=== PATIENT | male | born 1945 | race Caucasian/White ===

== ENCOUNTER 2021-11-07 15:04 | Inpatient (IN) ==
[2021-11-07] MEDS ORDERED: 0.9 % Sodium Chloride 1,000 ML IV ONE (21:02)
[2021-11-07 21:12] LABS: Basophils # 0.1 K/mcL (0.0-0.2); Basophils % 0.8 %; Eosinophils # 0.2 K/mcL (0.0-0.6); Eosinophils % 1.7 %; Hematocrit 33.5 % (37.5-50.1); Hemoglobin 11.3 g/dL (12.9-16.9); Immature Granulocytes % 0.3 % (0-4); Lymphocytes # 1.4 K/mcL (0.6-4.6); Lymphocytes % 14.2 %; Mean Corpuscular HGB Conc 33.7 g/dL (31.6-35.5); Mean Corpuscular Hemoglobin 29.1 pg (28.0-33.3); Mean Corpuscular Volume 86.3 fL (83.0-100.0); Mean Platelet Volume 10.3 fL (9.4-12.4); Monocytes # 0.6 K/mcL (0.0-1.3); Monocytes % 5.7 %; Neutrophils # 7.4 K/mcL (1.6-8.9); Platelet Count 361 K/mcL (140-400); Red Blood Count 3.88 M/mcL (4.19-5.50); Red Cell Distribution Width 17.9 % (11.5-14.5); Segmented Neutrophils % 77.3 %; White Blood Count 9.6 K/mcL (4.3-11.1)
[2021-11-07 21:23] LABS: INR 1.7; Prothrombin Time 19.4 Seconds (9.4-12.1)
[2021-11-07 21:26] LABS: Activated Partial Thrombo Time 34.4 Seconds (26.0-36.0)
[2021-11-07 21:32] LABS: Alanine Aminotransferase 10 Units/L (7-52); Albumin 3.3 g/dL (3.5-5.7); Albumin/Globulin Ratio 0.9 (1.1-2.2); Alkaline Phosphatase 59 Units/L (34-104); Aspartate Amino Transferase 27 Units/L (13-39); BUN/Creatinine Ratio 15 (6-26); Bilirubin,Direct 0.2 mg/dL (0.0-0.2); Bilirubin,Indirect 0.6 mg/dL (0.0-1.0); Bilirubin,Total 0.8 mg/dL (0.3-1.0); Blood Urea Nitrogen 15 mg/dL (8-23); Calcium 8.9 mg/dL (8.6-10.3); Carbon Dioxide 24 mEq/L (23-29); Chloride 105 mEq/L (98-107); Globulin 3.5 g/dL (2.4-3.5); Glucose 100 mg/dL (70-105); Lipase 8 Units/L (11-82); Magnesium 1.1 mg/dL (1.6-2.6); Osmolality,Calculated 293 (280-300); Potassium 2.8 mEq/L (3.5-5.1); Sodium 141 mEq/L (136-145); Total Protein 6.8 g/dL (6.4-8.9); eGFR For African Americans > 60 (> 60); eGFR For Non-African Americans > 60 (> 60)
[2021-11-07] MEDS ORDERED: Iopamidol - 370 500 ML MLS IVP ONE (21:44)
[2021-11-07] MEDS ORDERED: Pantoprazole 40 MG VIAL IVP ONE (21:45)
[2021-11-08] MEDS ORDERED: Ondansetron ODT 4 MG TAB.RAPDIS SL PRN (00:40)
[2021-11-08] MEDS ORDERED: Naloxone 0.4 MG/ML INJ IVP PRN (00:40)
[2021-11-08] MEDS ORDERED: Acetaminophen 325 MG TABLET PO PRN (04:44)
[2021-11-08] MEDS ORDERED: Dextrose Gel 15 GM/37.5 ML TUBE PO PRN ×2 (04:47)
[2021-11-08] MEDS ORDERED: *HR* Dextrose 50 % in Water (Syg) 50 ML SYRINGE IVP PRN (04:47)
[2021-11-08] MEDS ORDERED: D5% in Water 1,000 ML IVC PRN (04:47)
[2021-11-08 05:56] LABS: Hematocrit 32.1 % (37.5-50.1); Hemoglobin 10.7 g/dL (12.9-16.9); Mean Corpuscular HGB Conc 33.3 g/dL (31.6-35.5); Mean Corpuscular Hemoglobin 29.2 pg (28.0-33.3); Mean Corpuscular Volume 87.5 fL (83.0-100.0); Mean Platelet Volume 11.1 fL (9.4-12.4); Platelet Count 230 K/mcL (140-400); Red Blood Count 3.67 M/mcL (4.19-5.50); Red Cell Distribution Width 18.5 % (11.5-14.5); White Blood Count 8.4 K/mcL (4.3-11.1)
[2021-11-08] MEDS: 0.9 % Sodium Chloride 1,000 ML IVC SCH ×2 (06:06→17:33)
[2021-11-08] MEDS: Pantoprazole 40 MG VIAL IVP SCH ×2 (06:07→17:34)
[2021-11-08 06:27] LABS: BUN/Creatinine Ratio 18 (6-26); Blood Urea Nitrogen 14 mg/dL (8-23); Calcium 8.3 mg/dL (8.6-10.3); Carbon Dioxide 19 mEq/L (23-29); Chloride 108 mEq/L (98-107); Glucose 72 mg/dL (70-105); Magnesium 1.5 mg/dL (1.6-2.6); Osmolality,Calculated 287 (280-300); Phosphorous 2.6 mg/dL (2.7-4.5); Potassium 3.6 mEq/L (3.5-5.1); Sodium 139 mEq/L (136-145); eGFR For African Americans > 60 (> 60); eGFR For Non-African Americans > 60 (> 60)
[2021-11-08] MEDS: Insulin LISPRO 300 UNITS/3 ML VIAL SUBQ SCH ×4 (06:36→23:33)
[2021-11-08] MEDS ORDERED: Insulin LISPRO 300 UNITS/3 ML VIAL SUBQ SCH (07:30)
[2021-11-08] MEDS ORDERED: Iopamidol - 370 500 ML MLS IVP ONE (14:20)
[2021-11-08] MEDS ORDERED: Lidocaine -MPF 2% 2 ML VIAL ONE (15:17)
[2021-11-08] MEDS ORDERED: *HR* Propofol 200 MG/20 ML VIAL IVP ONE (15:18)
[2021-11-08] MEDS ORDERED: EPHEDrine 50 MG/ML VIAL ONE (15:54)
[2021-11-08] MEDS ORDERED: *HR* FentaNYL (PF) 100 MCG/2 ML VIAL ONE (16:16)
[2021-11-08 18:18] LABS: % Iron Saturation 13 % (20-55); Iron 30 mcg/dL (65-175); Transferrin 168 mg/dL (203-362)
[2021-11-08 18:44] LABS: Folate 7.9 ng/mL (3.0-16.0)
[2021-11-08 18:45] LABS: Vitamin B12 > 1500 pg/mL (250-1100)
[2021-11-08] MEDS: Temazepam 15 MG CAPSULE PO SCH (23:03)
[2021-11-08] MEDS: OLANZapine 5 MG TAB.RAPDIS PO SCH (23:03)
[2021-11-08] MEDS: Melatonin 3 MG TABLET PO PRN (23:03)
[2021-11-08] MEDS: amLODIPine 5 MG TABLET PO SCH (23:03)
[2021-11-09] MEDS: Insulin LISPRO 300 UNITS/3 ML VIAL SUBQ SCH ×3 (05:05→17:31)
[2021-11-09] MEDS: Pantoprazole 40 MG VIAL IVP SCH ×2 (05:29→18:05)
[2021-11-09 07:23] LABS: Basophils % 0.2 %; Hemoglobin 9.6 g/dL (12.9-16.9); Immature Granulocytes % 0.5 % (0-4); Lymphocytes # 0.7 K/mcL (0.6-4.6); Lymphocytes % 6.5 %; Mean Corpuscular HGB Conc 33.1 g/dL (31.6-35.5); Mean Corpuscular Hemoglobin 28.7 pg (28.0-33.3); Mean Corpuscular Volume 86.6 fL (83.0-100.0); Mean Platelet Volume 10.3 fL (9.4-12.4); Monocytes # 0.3 K/mcL (0.0-1.3); Monocytes % 2.9 %; Neutrophils # 9.5 K/mcL (1.6-8.9); Platelet Count 325 K/mcL (140-400); Red Blood Count 3.35 M/mcL (4.19-5.50); Red Cell Distribution Width 18.6 % (11.5-14.5); Segmented Neutrophils % 89.9 %; White Blood Count 10.5 K/mcL (4.3-11.1)
[2021-11-09 07:50] LABS: Alanine Aminotransferase 9 Units/L (7-52); Albumin 2.9 g/dL (3.5-5.7); Alkaline Phosphatase 51 Units/L (34-104); Aspartate Amino Transferase 24 Units/L (13-39); BUN/Creatinine Ratio 21 (6-26); Bilirubin,Total 0.7 mg/dL (0.3-1.0); Blood Urea Nitrogen 16 mg/dL (8-23); Calcium 8.5 mg/dL (8.6-10.3); Carbon Dioxide 20 mEq/L (23-29); Chloride 109 mEq/L (98-107); Globulin 2.9 g/dL (2.4-3.5); Glucose 110 mg/dL (70-105); Magnesium 1.3 mg/dL (1.6-2.6); Osmolality,Calculated 298 (280-300); Phosphorous 4.6 mg/dL (2.7-4.5); Potassium 2.8 mEq/L (3.5-5.1); Sodium 143 mEq/L (136-145); Total Protein 5.8 g/dL (6.4-8.9); eGFR For African Americans > 60 (> 60); eGFR For Non-African Americans > 60 (> 60)
[2021-11-09 08:02] LABS: Ferritin 183 ng/mL (20-250)
[2021-11-09] MEDS: Temazepam 15 MG CAPSULE PO SCH (20:24)
[2021-11-09] MEDS: amLODIPine 5 MG TABLET PO SCH (20:25)
[2021-11-09] MEDS: OLANZapine 5 MG TAB.RAPDIS PO SCH (20:25)
[2021-11-09] MEDS: Melatonin 3 MG TABLET PO PRN (20:25)
[2021-11-10] MEDS: Insulin LISPRO 300 UNITS/3 ML VIAL SUBQ SCH ×4 (02:14→18:40)
[2021-11-10 02:17] LABS: Basophils # 0.1 K/mcL (0.0-0.2); Basophils % 0.5 %; Eosinophils # 0.6 K/mcL (0.0-0.6); Eosinophils % 4.9 %; Immature Granulocytes % 0.3 % (0-4); Lymphocytes # 0.9 K/mcL (0.6-4.6); Lymphocytes % 7.4 %; Mean Corpuscular HGB Conc 33.3 g/dL (31.6-35.5); Mean Corpuscular Hemoglobin 29.1 pg (28.0-33.3); Mean Corpuscular Volume 87.4 fL (83.0-100.0); Monocytes # 0.4 K/mcL (0.0-1.3); Monocytes % 3.7 %; Neutrophils # 9.6 K/mcL (1.6-8.9); Platelet Count 322 K/mcL (140-400); Red Blood Count 3.09 M/mcL (4.19-5.50); Red Cell Distribution Width 19.1 % (11.5-14.5); Segmented Neutrophils % 83.2 %; White Blood Count 11.6 K/mcL (4.3-11.1)
[2021-11-10 02:44] LABS: BUN/Creatinine Ratio 27 (6-26); Blood Urea Nitrogen 20 mg/dL (8-23); Calcium 8.3 mg/dL (8.6-10.3); Carbon Dioxide 24 mEq/L (23-29); Chloride 112 mEq/L (98-107); Glucose 198 mg/dL (70-105); Magnesium 1.6 mg/dL (1.6-2.6); Osmolality,Calculated 304 (280-300); Phosphorous 1.3 mg/dL (2.7-4.5); Potassium 2.9 mEq/L (3.5-5.1); Sodium 143 mEq/L (136-145); eGFR For African Americans > 60 (> 60); eGFR For Non-African Americans > 60 (> 60)
[2021-11-10] MEDS ORDERED: Potassium Chloride Elixir 20 MEQ/15 ML UDC GTUBE ONE (03:31)
[2021-11-10] MEDS: Pantoprazole 40 MG VIAL IVP SCH ×2 (04:28→18:40)
[2021-11-10] MEDS ORDERED: Gadolinium Contrast Agent (WT Based) IV PRN (08:00)
[2021-11-10] MEDS: Iron Sucrose Complex 200 MG in 0.9 % Sodium Chloride 100 ML IVPB SCH (08:59)
[2021-11-10] MEDS: lisinopriL 20 MG TABLET PO SCH (09:00)
[2021-11-10] MEDS: Magnesium Oxide 400 MG TABLET PO SCH (09:00)
[2021-11-10 15:12] LABS: BUN/Creatinine Ratio 23 (6-26); Blood Urea Nitrogen 16 mg/dL (8-23); Calcium 8.4 mg/dL (8.6-10.3); Carbon Dioxide 24 mEq/L (23-29); Chloride 112 mEq/L (98-107); Glucose 150 mg/dL (70-105); Osmolality,Calculated 298 (280-300); Potassium 3.5 mEq/L (3.5-5.1); Sodium 142 mEq/L (136-145); eGFR For African Americans > 60 (> 60); eGFR For Non-African Americans > 60 (> 60)
[2021-11-10 20:25] LABS: Bacteria,Urine Few per hpf (None-Few); Bilirubin,Urine Negative (Negative); Blood,Urine Moderate (Negative); Clarity,Urine Clear (Clear); Color,Urine Yellow (Yellow); Glucose,Urine (UA) 50 mg/dL (Normal); Hyaline Casts,Urine Many per lpf (None Seen); Ketones,Urine Negative (Negative); Leukocyte Esterase,Urine Moderate (Negative); Mucus,Urine Few per lpf (None-Few); Nitrite,Urine Negative (Negative); Protein,Urine 30 mg/dL (Neg-Trace); Specific Gravity,Urine 1.028 (1.010-1.025); Squamous Epithelial Cell,Urine Few per hpf (None-Few); Urobilinogen,Urine Normal (Normal); WBC,Urine 15-30 per hpf (0-3)
[2021-11-10] MEDS: OLANZapine 5 MG TAB.RAPDIS PO SCH (20:26)
[2021-11-10] MEDS: amLODIPine 5 MG TABLET PO SCH (20:27)
[2021-11-10] MEDS: Temazepam 15 MG CAPSULE PO SCH (20:27)
[2021-11-10] MEDS: Melatonin 3 MG TABLET PO PRN (20:27)
[2021-11-11 05:59] LABS: Basophils # 0.1 K/mcL (0.0-0.2); Basophils % 0.8 %; Eosinophils # 0.7 K/mcL (0.0-0.6); Eosinophils % 7.5 %; Hematocrit 27.4 % (37.5-50.1); Immature Granulocytes % 0.6 % (0-4); Lymphocytes # 0.9 K/mcL (0.6-4.6); Lymphocytes % 9.8 %; Mean Corpuscular HGB Conc 32.8 g/dL (31.6-35.5); Mean Corpuscular Hemoglobin 29.2 pg (28.0-33.3); Mean Platelet Volume 10.3 fL (9.4-12.4); Monocytes # 0.5 K/mcL (0.0-1.3); Monocytes % 4.7 %; Neutrophils # 7.4 K/mcL (1.6-8.9); Platelet Count 318 K/mcL (140-400); Red Blood Count 3.08 M/mcL (4.19-5.50); Red Cell Distribution Width 19.7 % (11.5-14.5); Segmented Neutrophils % 76.6 %; White Blood Count 9.6 K/mcL (4.3-11.1)
[2021-11-11] MEDS: Insulin LISPRO 300 UNITS/3 ML VIAL SUBQ SCH ×4 (06:03→17:49)
[2021-11-11 06:24] LABS: BUN/Creatinine Ratio 22 (6-26); Blood Urea Nitrogen 14 mg/dL (8-23); Calcium 8.4 mg/dL (8.6-10.3); Carbon Dioxide 27 mEq/L (23-29); Chloride 112 mEq/L (98-107); Glucose 139 mg/dL (70-105); Osmolality,Calculated 299 (280-300); Potassium 3.4 mEq/L (3.5-5.1); Sodium 143 mEq/L (136-145); eGFR For African Americans > 60 (> 60); eGFR For Non-African Americans > 60 (> 60)
[2021-11-11 06:26] LABS: Magnesium 1.5 mg/dL (1.6-2.6); Phosphorous < 1.0 mg/dL (2.7-4.5)
[2021-11-11] MEDS: Pantoprazole 40 MG VIAL IVP SCH (06:28)
[2021-11-11] MEDS ORDERED: Potassium Phosphate 44 MEQ in 0.9 % Sodium Chloride 250 ML IVPB ONE (07:27)
[2021-11-11] MEDS: lisinopriL 20 MG TABLET PO SCH (07:55)
[2021-11-11] MEDS: Magnesium Oxide 400 MG TABLET PO SCH (07:55)
[2021-11-11] MEDS: Iron Sucrose Complex 200 MG in 0.9 % Sodium Chloride 100 ML IVPB SCH (10:29)
[2021-11-11] MEDS ORDERED: Melatonin 3 MG TABLET GTUBE PRN (15:38)
[2021-11-11] MEDS: Temazepam 15 MG CAPSULE GTUBE SCH (20:51)
[2021-11-11] MEDS: amLODIPine 5 MG TABLET GTUBE SCH (20:52)
[2021-11-11] MEDS: OLANZapine 5 MG TAB.RAPDIS PO SCH (20:52)
[2021-11-12] MEDS: Insulin LISPRO 300 UNITS/3 ML VIAL SUBQ SCH ×4 (01:33→17:16)
[2021-11-12 03:20] LABS: Hematocrit 26.5 % (37.5-50.1); Hemoglobin 8.4 g/dL (12.9-16.9); Mean Corpuscular HGB Conc 31.7 g/dL (31.6-35.5); Mean Corpuscular Volume 91.4 fL (83.0-100.0); Mean Platelet Volume 10.6 fL (9.4-12.4); Platelet Count 290 K/mcL (140-400); White Blood Count 10.3 K/mcL (4.3-11.1)
[2021-11-12 03:45] LABS: Alanine Aminotransferase 13 Units/L (7-52); Albumin 2.7 g/dL (3.5-5.7); Alkaline Phosphatase 62 Units/L (34-104); Aspartate Amino Transferase 48 Units/L (13-39); BUN/Creatinine Ratio 32 (6-26); Bilirubin,Total 0.5 mg/dL (0.3-1.0); Blood Urea Nitrogen 19 mg/dL (8-23); Calcium 8.3 mg/dL (8.6-10.3); Carbon Dioxide 23 mEq/L (23-29); Chloride 112 mEq/L (98-107); Globulin 2.7 g/dL (2.4-3.5); Glucose 146 mg/dL (70-105); Magnesium 1.5 mg/dL (1.6-2.6); Osmolality,Calculated 299 (280-300); Potassium 3.8 mEq/L (3.5-5.1); Sodium 142 mEq/L (136-145); Total Protein 5.4 g/dL (6.4-8.9); eGFR For African Americans > 60 (> 60); eGFR For Non-African Americans > 60 (> 60)
[2021-11-12] MEDS: lisinopriL 20 MG TABLET GTUBE SCH (07:48)
[2021-11-12] MEDS: Iron Sucrose Complex 200 MG in 0.9 % Sodium Chloride 100 ML IVPB SCH (08:15)
[2021-11-12] MEDS ORDERED: Potassium Phosphate 44 MEQ in 0.9 % Sodium Chloride 250 ML IVPB ONE (17:49)
[2021-11-12] MEDS: OLANZapine 5 MG TAB.RAPDIS PO SCH (20:46)
[2021-11-12] MEDS: amLODIPine 5 MG TABLET GTUBE SCH (20:46)
[2021-11-12] MEDS: Temazepam 15 MG CAPSULE GTUBE SCH (20:47)
[2021-11-13] MEDS: Insulin LISPRO 300 UNITS/3 ML VIAL SUBQ SCH ×4 (00:30→19:46)
[2021-11-13 01:46] LABS: Hematocrit 22.5 % (37.5-50.1); Mean Corpuscular HGB Conc 31.1 g/dL (31.6-35.5); Mean Corpuscular Hemoglobin 28.5 pg (28.0-33.3); Mean Corpuscular Volume 91.5 fL (83.0-100.0); Mean Platelet Volume 10.4 fL (9.4-12.4); Platelet Count 323 K/mcL (140-400); Red Blood Count 2.46 M/mcL (4.19-5.50); Red Cell Distribution Width 20.3 % (11.5-14.5); White Blood Count 12.2 K/mcL (4.3-11.1)
[2021-11-13 02:08] LABS: BUN/Creatinine Ratio 52 (6-26); Blood Urea Nitrogen 32 mg/dL (8-23); Calcium 8.1 mg/dL (8.6-10.3); Carbon Dioxide 26 mEq/L (23-29); Chloride 111 mEq/L (98-107); Glucose 163 mg/dL (70-105); Magnesium 1.8 mg/dL (1.6-2.6); Osmolality,Calculated 304 (280-300); Phosphorous 1.7 mg/dL (2.7-4.5); Potassium 3.9 mEq/L (3.5-5.1); Sodium 142 mEq/L (136-145); eGFR For African Americans > 60 (> 60); eGFR For Non-African Americans > 60 (> 60)
[2021-11-13] MEDS ORDERED: 0.9 % Sodium Chloride 250 ML IVC SCH (03:30)
[2021-11-13] MEDS: lisinopriL 20 MG TABLET GTUBE SCH (09:48)
[2021-11-13 14:12] LABS: Hematocrit 21.5 % (37.5-50.1); Hemoglobin 6.9 g/dL (12.9-16.9)
[2021-11-13] MEDS ORDERED: 0.9 % Sodium Chloride 500 ML IVC ONE (20:52)
[2021-11-13] MEDS: OLANZapine 5 MG TAB.RAPDIS PO SCH (21:26)
[2021-11-13 21:27] LABS: Adenovirus F 40/41 PCR Not detected (Not detect); Astrovirus PCR Not detected (Not detect); C.difficile Toxin A/B Gene PCR Not detected (Not detect); Campylobacter by PCR Not detected (Not detect); Cryptosporidium by PCR Not detected (Not detect); Cyclospora cayetanensis PCR Not detected (Not detect); E. coli O157 by PCR Not detected (Not detect); Entamoeba histolytica PCR Not detected (Not detect); Enteroaggregative E.coli(EAEC) Not detected (Not detect); Enteropathogenic E.coli(EPEC) Not detected (Not detect); Enterotoxigenic E.coli (ETEC) Not detected (Not detect); Giardia lamblia PCR Not detected (Not detect); Norovirus GI/GII PCR Not detected (Not detect); Plesiomonas shigelloides PCR Not detected (Not detect); Rotavirus A PCR Not detected (Not detect); Salmonella PCR Not detected (Not detect); Sapovirus PCR Not detected (Not detect); Shig/EnteroinvasiveE coli EIEC Not detected (Not detect); Shigalike tox-prod E coli STEC Not detected (Not detect); Vibrio PCR Not detected (Not detect); Vibrio cholerae PCR Not detected (Not detect); Yersinia enterocolitica PCR Not detected (Not detect)
[2021-11-13] MEDS: Temazepam 15 MG CAPSULE GTUBE SCH (21:30)
[2021-11-14] MEDS: Insulin LISPRO 300 UNITS/3 ML VIAL SUBQ SCH ×4 (01:12→15:26)
[2021-11-14 01:44] LABS: Hematocrit 20.8 % (37.5-50.1); Hemoglobin 6.7 g/dL (12.9-16.9); Mean Corpuscular HGB Conc 32.2 g/dL (31.6-35.5); Mean Corpuscular Hemoglobin 30.6 pg (28.0-33.3); Mean Platelet Volume 11.1 fL (9.4-12.4); Platelet Count 278 K/mcL (140-400); Red Blood Count 2.19 M/mcL (4.19-5.50); Red Cell Distribution Width 18.3 % (11.5-14.5)
[2021-11-14 01:53] LABS: BUN/Creatinine Ratio 62 (6-26); Blood Urea Nitrogen 63 mg/dL (8-23); Calcium 7.6 mg/dL (8.6-10.3); Carbon Dioxide 21 mEq/L (23-29); Chloride 114 mEq/L (98-107); Glucose 181 mg/dL (70-105); Osmolality,Calculated 319 (280-300); Potassium 4.4 mEq/L (3.5-5.1); Sodium 143 mEq/L (136-145); eGFR For African Americans > 60 (> 60); eGFR For Non-African Americans > 60 (> 60)
[2021-11-14] MEDS ORDERED: 0.9 % Sodium Chloride 250 ML IVC SCH (02:30)
[2021-11-14 09:41] LABS: Magnesium 1.7 mg/dL (1.6-2.6); Phosphorous 3.4 mg/dL (2.7-4.5)
[2021-11-14] MEDS: Cholecalciferol (D-3) 1,000 UNIT (25MCG) TABLET PO SCH (09:41)
[2021-11-14] MEDS: allopurinoL 100 MG TABLET GTUBE SCH (09:41)
[2021-11-14] MEDS: Piperacillin/Tazobactam 3.375 GM in 0.9 % Sodium Chloride Mini Bag 100 ML IVPB SCH (16:31)
[2021-11-14] MEDS: OLANZapine 5 MG TAB.RAPDIS PO SCH (21:42)
[2021-11-14] MEDS: Temazepam 15 MG CAPSULE GTUBE SCH (21:42)
[2021-11-15] MEDS: Piperacillin/Tazobactam 3.375 GM in 0.9 % Sodium Chloride Mini Bag 100 ML IVPB SCH ×3 (01:50→17:35)
[2021-11-15] MEDS: Insulin LISPRO 300 UNITS/3 ML VIAL SUBQ SCH ×4 (01:50→17:21)
[2021-11-15] MEDS: Cholecalciferol (D-3) 1,000 UNIT (25MCG) TABLET PO SCH (07:52)
[2021-11-15] MEDS: allopurinoL 100 MG TABLET GTUBE SCH (07:52)
[2021-11-15 09:08] LABS: Basophils # 0.1 K/mcL (0.0-0.2); Basophils % 0.4 %; Eosinophils # 0.3 K/mcL (0.0-0.6); Eosinophils % 2.7 %; Hematocrit 25.3 % (37.5-50.1); Hemoglobin 8.2 g/dL (12.9-16.9); Immature Granulocytes % 0.9 % (0-4); Lymphocytes # 0.6 K/mcL (0.6-4.6); Lymphocytes % 4.8 %; Mean Corpuscular HGB Conc 32.4 g/dL (31.6-35.5); Mean Corpuscular Hemoglobin 29.8 pg (28.0-33.3); Mean Platelet Volume 10.7 fL (9.4-12.4); Monocytes # 0.5 K/mcL (0.0-1.3); Monocytes % 4.3 %; Neutrophils # 10.4 K/mcL (1.6-8.9); Nucleated Red Blood Cells 0.3 /100 WBC (0); Platelet Count 243 K/mcL (140-400); Red Blood Count 2.75 M/mcL (4.19-5.50); Red Cell Distribution Width 18.6 % (11.5-14.5); Segmented Neutrophils % 86.9 %
[2021-11-15 09:32] LABS: BUN/Creatinine Ratio 62 (6-26); Blood Urea Nitrogen 48 mg/dL (8-23); Calcium 8.4 mg/dL (8.6-10.3); Carbon Dioxide 27 mEq/L (23-29); Chloride 112 mEq/L (98-107); Glucose 148 mg/dL (70-105); Osmolality,Calculated 313 (280-300); Potassium 4.4 mEq/L (3.5-5.1); Sodium 144 mEq/L (136-145); eGFR For African Americans > 60 (> 60); eGFR For Non-African Americans > 60 (> 60)
[2021-11-15] MEDS: OLANZapine 5 MG TAB.RAPDIS PO SCH (21:00)
[2021-11-15] MEDS: Temazepam 15 MG CAPSULE GTUBE SCH (21:00)
[2021-11-16] MEDS: Insulin LISPRO 300 UNITS/3 ML VIAL SUBQ SCH ×4 (00:08→17:13)
[2021-11-16] MEDS: Piperacillin/Tazobactam 3.375 GM in 0.9 % Sodium Chloride Mini Bag 100 ML IVPB SCH ×3 (00:09→17:16)
[2021-11-16 01:49] LABS: Hematocrit 22.5 % (37.5-50.1); Mean Corpuscular HGB Conc 31.1 g/dL (31.6-35.5); Mean Corpuscular Volume 96.6 fL (83.0-100.0); Mean Platelet Volume 11.2 fL (9.4-12.4); Platelet Count 175 K/mcL (140-400); Red Blood Count 2.33 M/mcL (4.19-5.50); Red Cell Distribution Width 18.6 % (11.5-14.5); White Blood Count 7.7 K/mcL (4.3-11.1)
[2021-11-16 01:56] LABS: BUN/Creatinine Ratio 48 (6-26); Blood Urea Nitrogen 33 mg/dL (8-23); Calcium 7.8 mg/dL (8.6-10.3); Carbon Dioxide 21 mEq/L (23-29); Chloride 112 mEq/L (98-107); Glucose 156 mg/dL (70-105); Osmolality,Calculated 302 (280-300); Potassium 4.3 mEq/L (3.5-5.1); Sodium 141 mEq/L (136-145); eGFR For African Americans > 60 (> 60); eGFR For Non-African Americans > 60 (> 60)
[2021-11-16] MEDS: Cholecalciferol (D-3) 1,000 UNIT (25MCG) TABLET PO SCH (09:04)
[2021-11-16] MEDS: allopurinoL 100 MG TABLET GTUBE SCH (09:05)
[2021-11-16] MEDS: OLANZapine 5 MG TAB.RAPDIS PO SCH (20:12)
[2021-11-16] MEDS: Temazepam 15 MG CAPSULE GTUBE SCH (20:12)
[2021-11-17] MEDS: Piperacillin/Tazobactam 3.375 GM in 0.9 % Sodium Chloride Mini Bag 100 ML IVPB SCH ×3 (01:26→17:32)
[2021-11-17] MEDS: Insulin LISPRO 300 UNITS/3 ML VIAL SUBQ SCH ×4 (01:26→15:51)
[2021-11-17 02:32] LABS: Hemoglobin 7.2 g/dL (12.9-16.9); Mean Corpuscular HGB Conc 32.7 g/dL (31.6-35.5); Mean Corpuscular Hemoglobin 30.6 pg (28.0-33.3); Mean Corpuscular Volume 93.6 fL (83.0-100.0); Mean Platelet Volume 10.6 fL (9.4-12.4); Platelet Count 201 K/mcL (140-400); Red Blood Count 2.35 M/mcL (4.19-5.50); White Blood Count 6.3 K/mcL (4.3-11.1)
[2021-11-17 02:50] LABS: BUN/Creatinine Ratio 32 (6-26); Blood Urea Nitrogen 19 mg/dL (8-23); Calcium 7.9 mg/dL (8.6-10.3); Carbon Dioxide 23 mEq/L (23-29); Chloride 110 mEq/L (98-107); Glucose 121 mg/dL (70-105); Osmolality,Calculated 288 (280-300); Potassium 3.8 mEq/L (3.5-5.1); Sodium 137 mEq/L (136-145); eGFR For African Americans > 60 (> 60); eGFR For Non-African Americans > 60 (> 60)
[2021-11-17] MEDS: Cholecalciferol (D-3) 1,000 UNIT (25MCG) TABLET PO SCH (09:14)
[2021-11-17] MEDS: allopurinoL 100 MG TABLET GTUBE SCH (09:14)
[2021-11-17] MEDS: Temazepam 15 MG CAPSULE GTUBE SCH (20:55)
[2021-11-17] MEDS: OLANZapine 5 MG TAB.RAPDIS PO SCH (20:55)
[2021-11-18] MEDS: Piperacillin/Tazobactam 3.375 GM in 0.9 % Sodium Chloride Mini Bag 100 ML IVPB SCH ×3 (00:09→16:31)
[2021-11-18] MEDS: Insulin LISPRO 300 UNITS/3 ML VIAL SUBQ SCH ×4 (00:10→19:21)
[2021-11-18 02:09] LABS: Hematocrit 21.6 % (37.5-50.1); Mean Corpuscular HGB Conc 32.4 g/dL (31.6-35.5); Mean Corpuscular Hemoglobin 30.4 pg (28.0-33.3); Mean Corpuscular Volume 93.9 fL (83.0-100.0); Mean Platelet Volume 10.7 fL (9.4-12.4); Platelet Count 219 K/mcL (140-400); Red Cell Distribution Width 17.8 % (11.5-14.5); White Blood Count 5.5 K/mcL (4.3-11.1)
[2021-11-18 02:25] LABS: BUN/Creatinine Ratio 24 (6-26); Blood Urea Nitrogen 14 mg/dL (8-23); Calcium 7.7 mg/dL (8.6-10.3); Carbon Dioxide 21 mEq/L (23-29); Chloride 108 mEq/L (98-107); Glucose 156 mg/dL (70-105); Osmolality,Calculated 282 (280-300); Potassium 3.8 mEq/L (3.5-5.1); Sodium 134 mEq/L (136-145); eGFR For African Americans > 60 (> 60); eGFR For Non-African Americans > 60 (> 60)
[2021-11-18] MEDS: Cholecalciferol (D-3) 1,000 UNIT (25MCG) TABLET PO SCH (09:44)
[2021-11-18] MEDS: allopurinoL 100 MG TABLET GTUBE SCH (09:44)
[2021-11-18] MEDS: Temazepam 15 MG CAPSULE GTUBE SCH (21:44)
[2021-11-18] MEDS: OLANZapine 5 MG TAB.RAPDIS PO SCH (21:44)
[2021-11-19] MEDS: Insulin LISPRO 300 UNITS/3 ML VIAL SUBQ SCH ×4 (00:35→20:40)
[2021-11-19] MEDS: Piperacillin/Tazobactam 3.375 GM in 0.9 % Sodium Chloride Mini Bag 100 ML IVPB SCH ×3 (01:21→17:11)
[2021-11-19 07:35] LABS: Hematocrit 24.1 % (37.5-50.1); Mean Corpuscular HGB Conc 33.2 g/dL (31.6-35.5); Mean Corpuscular Hemoglobin 30.8 pg (28.0-33.3); Mean Corpuscular Volume 92.7 fL (83.0-100.0); Mean Platelet Volume 10.4 fL (9.4-12.4); Platelet Count 229 K/mcL (140-400); Red Cell Distribution Width 17.4 % (11.5-14.5); White Blood Count 5.5 K/mcL (4.3-11.1)
[2021-11-19 08:09] LABS: BUN/Creatinine Ratio 14 (6-26); Blood Urea Nitrogen 9 mg/dL (8-23); Calcium 8.2 mg/dL (8.6-10.3); Carbon Dioxide 23 mEq/L (23-29); Chloride 105 mEq/L (98-107); Glucose 100 mg/dL (70-105); Osmolality,Calculated 277 (280-300); Potassium 3.6 mEq/L (3.5-5.1); Sodium 134 mEq/L (136-145); eGFR For African Americans > 60 (> 60); eGFR For Non-African Americans > 60 (> 60)
[2021-11-19] MEDS: Cholecalciferol (D-3) 1,000 UNIT (25MCG) TABLET PO SCH (08:47)
[2021-11-19] MEDS: allopurinoL 100 MG TABLET GTUBE SCH (08:47)
[2021-11-19] MEDS: OLANZapine 5 MG TAB.RAPDIS PO SCH (20:40)
[2021-11-19] MEDS: Temazepam 15 MG CAPSULE GTUBE SCH (20:40)
[2021-11-20] MEDS: Piperacillin/Tazobactam 3.375 GM in 0.9 % Sodium Chloride Mini Bag 100 ML IVPB SCH ×3 (00:08→16:46)
[2021-11-20] MEDS: Insulin LISPRO 300 UNITS/3 ML VIAL SUBQ SCH ×4 (00:12→19:44)
[2021-11-20 02:35] LABS: Hematocrit 24.6 % (37.5-50.1); Hemoglobin 7.9 g/dL (12.9-16.9); Mean Corpuscular HGB Conc 32.1 g/dL (31.6-35.5); Mean Corpuscular Hemoglobin 30.3 pg (28.0-33.3); Mean Corpuscular Volume 94.3 fL (83.0-100.0); Mean Platelet Volume 10.4 fL (9.4-12.4); Platelet Count 249 K/mcL (140-400); Red Blood Count 2.61 M/mcL (4.19-5.50); Red Cell Distribution Width 17.8 % (11.5-14.5); White Blood Count 5.1 K/mcL (4.3-11.1)
[2021-11-20 02:55] LABS: BUN/Creatinine Ratio 16 (6-26); Blood Urea Nitrogen 11 mg/dL (8-23); Carbon Dioxide 20 mEq/L (23-29); Chloride 108 mEq/L (98-107); Glucose 144 mg/dL (70-105); Osmolality,Calculated 280 (280-300); Potassium 3.6 mEq/L (3.5-5.1); Sodium 134 mEq/L (136-145); eGFR For African Americans > 60 (> 60); eGFR For Non-African Americans > 60 (> 60)
[2021-11-20] MEDS: allopurinoL 100 MG TABLET GTUBE SCH (07:57)
[2021-11-20] MEDS: Cholecalciferol (D-3) 1,000 UNIT (25MCG) TABLET PO SCH (07:57)
[2021-11-20] MEDS: OLANZapine 5 MG TAB.RAPDIS PO SCH (20:33)
[2021-11-20] MEDS: Temazepam 15 MG CAPSULE GTUBE SCH (20:33)
[2021-11-21] MEDS: Piperacillin/Tazobactam 3.375 GM in 0.9 % Sodium Chloride Mini Bag 100 ML IVPB SCH ×3 (00:04→15:14)
[2021-11-21] MEDS: Insulin LISPRO 300 UNITS/3 ML VIAL SUBQ SCH ×5 (00:04→23:47)
[2021-11-21 03:49] LABS: Hematocrit 25.2 % (37.5-50.1); Hemoglobin 8.1 g/dL (12.9-16.9); Mean Corpuscular HGB Conc 32.1 g/dL (31.6-35.5); Mean Corpuscular Hemoglobin 30.1 pg (28.0-33.3); Mean Corpuscular Volume 93.7 fL (83.0-100.0); Mean Platelet Volume 10.5 fL (9.4-12.4); Platelet Count 269 K/mcL (140-400); Red Blood Count 2.69 M/mcL (4.19-5.50); Red Cell Distribution Width 18.2 % (11.5-14.5); White Blood Count 4.9 K/mcL (4.3-11.1)
[2021-11-21 04:06] LABS: BUN/Creatinine Ratio 18 (6-26); Blood Urea Nitrogen 11 mg/dL (8-23); Calcium 8.2 mg/dL (8.6-10.3); Carbon Dioxide 20 mEq/L (23-29); Chloride 109 mEq/L (98-107); Glucose 118 mg/dL (70-105); Osmolality,Calculated 280 (280-300); Potassium 3.7 mEq/L (3.5-5.1); Sodium 135 mEq/L (136-145); eGFR For African Americans > 60 (> 60); eGFR For Non-African Americans > 60 (> 60)
[2021-11-21] MEDS: Cholecalciferol (D-3) 1,000 UNIT (25MCG) TABLET GTUBE SCH (08:14)
[2021-11-21] MEDS: allopurinoL 100 MG TABLET GTUBE SCH (08:14)
[2021-11-21] MEDS: OLANZapine 5 MG TAB.RAPDIS PO SCH (20:39)
[2021-11-21] MEDS: Temazepam 15 MG CAPSULE GTUBE SCH (20:39)
[2021-11-22 02:11] LABS: Hematocrit 27.5 % (37.5-50.1); Hemoglobin 8.8 g/dL (12.9-16.9); Mean Corpuscular Hemoglobin 30.4 pg (28.0-33.3); Mean Corpuscular Volume 95.2 fL (83.0-100.0); Mean Platelet Volume 10.2 fL (9.4-12.4); Platelet Count 297 K/mcL (140-400); Red Blood Count 2.89 M/mcL (4.19-5.50); Red Cell Distribution Width 18.5 % (11.5-14.5); White Blood Count 4.9 K/mcL (4.3-11.1)
[2021-11-22 02:23] LABS: BUN/Creatinine Ratio 16 (6-26); Blood Urea Nitrogen 9 mg/dL (8-23); Calcium 8.6 mg/dL (8.6-10.3); Carbon Dioxide 20 mEq/L (23-29); Chloride 109 mEq/L (98-107); Glucose 105 mg/dL (70-105); Osmolality,Calculated 281 (280-300); Potassium 3.6 mEq/L (3.5-5.1); Sodium 136 mEq/L (136-145); eGFR For African Americans > 60 (> 60); eGFR For Non-African Americans > 60 (> 60)
[2021-11-22] MEDS: Insulin LISPRO 300 UNITS/3 ML VIAL SUBQ SCH ×2 (06:45→11:19)
[2021-11-22] MEDS: allopurinoL 100 MG TABLET GTUBE SCH (08:23)
[2021-11-22] MEDS: Cholecalciferol (D-3) 1,000 UNIT (25MCG) TABLET GTUBE SCH (08:23)
[2021-11-22] MEDS: Piperacillin/Tazobactam 3.375 GM in 0.9 % Sodium Chloride Mini Bag 100 ML IVPB SCH ×2 (08:24)
[2021-11-22 15:47] VITALS: O2SAT 98
[2021-11-22 16:47] VITALS: BP 128/56; PULSE 90; TEMP 97.4
== END 2021-11-22 17:40 | disposition home health service (06) | DRG 375 ==
LOC: EMEROOARM 15:04 → 2NENU 15:04 → SUATTDRO 11-10 14:35
PROVIDERS: ADMIT Internal Medicine; ATTEND Internal Medicine
PROC: ENDOEBX (2021-11-08 15:30)